=== PATIENT | male | born 1965 | race Caucasian/White ===

== ENCOUNTER 2017-01-11 18:29 | Emergency (ER) | payer MEDICAID ==
--- NOTE | 2017-01-11 19:21 | C.PDOC ---
History Of Present Illness Patient presents to the ER after he tripped and fell down the stairs earlier today and hit the back of his head. Patient states he might have had LOC and is complaining of pain to the occipital area and left foot. Patient is currently speaking in complete sentences; denies change in vision, nausea, or vomiting. - HPI Time Seen by Provider: 01/11/17 19:21 Chief Complaint (Nursing): Trauma History Per: Patient History/Exam Limitations: no limitations Onset/Duration Of Symptoms: Hrs Injury Occurred (Timing): Just Before Arrival Location Of Injury: Left: Foot, Posterior: Head Severity: Mild Pain Scale Rating Of: 4 Associated Symptoms: LOC (Questionable) Recent travel outside of the [place]: No - Fall Fall:Prior To Injury: Tripped Past Medical History Reviewed: Historical Data, Nursing Documentation, Vital Signs Vital Signs: Last Vital Signs Temp Pulse 85 01/11/17 19:45 Resp 18 01/11/17 19:45 BP 126/79 01/11/17 19:45 Pulse Ox 98 01/11/17 21:32 - Medical History PMH: Depression, Hepatitis (C), Hypothyroidism Surgical History: No Surg Hx Family History: States: No Known Family Hx - Social History Hx Tobacco Use: No Hx Alcohol Use: No Hx Substance Use: Yes (heroin cocaine) - Immunization History Hx Tetanus Toxoid Vaccination: No Hx Influenza Vaccination: No Hx Pneumococcal Vaccination: No Review Of Systems Eyes: Negative for: Vision Change Gastrointestinal: Negative for: Nausea, Vomiting Musculoskeletal: Positive for: Foot Pain, Other (Occipital area pain) Skin: Positive for: Other (Abrasion) Physical Exam - Physical Exam Appears: Non-toxic, Other (Awake, alert, in moderate distress) Skin: Warm, Dry Head: Normacephalic, Abrasion (Left occipital area) Eye(s): bilateral: Normal Inspection, PERRL, EOMI Oral Mucosa: Moist Neck: No Midline Cervical Tenderness, No Paracervical Tenderness, Supple Chest: Symmetrical, No Tenderness Cardiovascular: Rhythm Regular Respiratory: No Rales, No Rhonchi, No Wheezing Gastrointestinal/Abdominal: Soft, No Tenderness Extremity: Tenderness (Over dorsum of left foot), Pedal Edema (Trace, left great than right), Capillary Refill (<2 seconds), No Deformity, Other (Surgical scar over right leg) Pulses: Left Dorsalis Pedis: Normal, Right Dorsalis Pedis: Normal Neurological/Psych: Oriented x3 ED Course And Treatment - Laboratory Results Result Diagrams: 01/11/17 19:45 01/11/17 19:45 O2 Sat by Pulse Oximetry: 98 Pulse Ox Interpretation: Normal - Other Rad ankle X-Ray: Interpreted by Me, Viewed By Me Interpretation: no fx or dislocation foot X-Ray: Interpreted by Me, Viewed By Me Interpretation: no fx or dislocation Progress Note: CT cervical spine, CT head, CT orbits/facials, left foot x-ray, left ankle x-ray, and urinalysis ordered. Reevaluation Time: 22:01 Reassessment Condition: Improved Laceration - Laceration Repair scalp Wound Length (In cm): 4 Description Of Wound: Stellate Wound Cleansed With: Betadine Anesthesia: Lidocaine 1%, With Epi Wound Examination: Irrigated With Saline Wound Closure: [place] (#10) Wound Complexity: Simple (Pt tolereated the procedure well.) Disposition Counseled Patient/Family Regarding: Studies Performed, Diagnosis, Need For Followup - Disposition Referrals: [facility] [Outside] [facility] [Outside] Disposition: HOME/ ROUTINE Disposition Time: 19:21 Condition: FAIR Additional Instructions: Please have jonas removed in 7 -10 days Prescriptions: Naproxen [Naprosyn] 1 tab PO BID PRN #25 tab PRN Reason: Pain Instructions: Laceration (DC), Staple Care (ED), Arthralgia (ED) Forms: [facility] (Hebrew) - Clinical Impression Clinical Impression: Fall, Scalp laceration, Foot pain, left - Scribe Statement The provider has reviewed the documentation as recorded by the Scribxiomara Jason All medical record entries made by the Mattibxiomara were at my direction and personally dictated by me. I have reviewed the chart and agree that the record accurately reflects my personal performance of the history, physical exam, medical decision making, and the department course for this patient. I have also personally directed, reviewed, and agree with the discharge instructions and disposition.
[2017-01-11 19:49] VITALS: RESP 18; O2SAT 98
[2017-01-11 19:51] LABS: BASO # 0.1 K/uL (0.0-0.2); BASO % 0.8 % (0.0-2.0); EOS # 0.1 K/uL (0.0-0.7); EOS % 0.8 % (0.0-4.0); HEMATOCRIT 39.7 % (35.0-51.0); LYMPH # 1.5 K/uL (1.0-4.3); LYMPH % 18.1 % (20.0-40.0); MEAN CORPUSCULAR HGB CONC 33.5 g/dL (33.0-37.0); MEAN PLATELET VOLUME 10.5 fL (7.2-11.7); MONO # 1.2 K/uL (0.0-0.8); MONO % 14.2 % (0.0-10.0); RED CELL DISTRIBUTION WIDTH 14.9 % (11.5-14.5); WHITE BLOOD COUNT 8.2 K/uL (4.8-10.8)
[2017-01-11 19:56] LABS: MEAN CELL VOLUME 83.5 fL (80.0-94.0)
[2017-01-11 20:00] LABS: INR 1.4
[2017-01-11 20:04] LABS: ALB/GLOB RATIO 1.1 (1.0-2.1); ALCOHOL SERUM < 10 mg/dl (0-10); ALKALINE PHOSPHATASE 75 U/L (38-126); ALT/SGPT 47 U/L (21-72); AST/SGOT 33 U/L (17-59); BILIRUBIN,TOTAL 0.6 mg/dL (0.2-1.3); BLOOD UREA NITROGEN 16 mg/dL (9-20); CALCIUM 8.3 mg/dl (8.6-10.4); CARBON DIOXIDE 26 mmol/L (22-30); CHLORIDE 103 mmol/L (98-107); GFR AFRICAN-AMERICAN > 60; GLUCOSE,RANDOM 121 mg/dL (75-110); SODIUM 140 mmol/L (132-148); TOTAL PROTEIN 7.1 g/dL (6.3-8.3)
--- NOTE | 2017-01-11 20:25 | CT ---
PROCEDURE: CT HEAD WITHOUT CONTRAST. HISTORY: fall COMPARISON: None available. TECHNIQUE: Axial computed tomography images were obtained through the head/brain without intravenous contrast. Radiation dose: Total exam DLP = 992.73 mGy-cm. This CT exam was performed using one or more of the following dose reduction techniques: Automated exposure control, adjustment of the mA and/or kV according to patient size, and/or use of iterative reconstruction technique. FINDINGS: HEMORRHAGE: No intracranial hemorrhage. BRAIN: No mass effect or edema. No atrophy or chronic microvascular ischemic changes. VENTRICLES: Unremarkable. No hydrocephalus. CALVARIUM: No calvarial fracture. Left parietal scalp laceration. PARANASAL SINUSES: Unremarkable as visualized. No significant inflammatory changes. MASTOID AIR CELLS: Unremarkable as visualized. No inflammatory changes. OTHER FINDINGS: There is a depressed fracture of the left lamina papyracea of indeterminate age. In the absence of adjacent orbital hemorrhage or blood within the paranasal sinuses,, this is most likely old. IMPRESSION: No intracranial hemorrhage. Probable old depressed left lamina papyracea fracture. Left parietal scalp laceration.
--- NOTE | 2017-01-11 20:28 | CT ---
PROCEDURE: CT Cervical Spine without contrast HISTORY: Status post fall COMPARISON: None available. TECHNIQUE: Axial computed tomography images were obtained of the cervical spine without the use of intravenous contrast. Coronal and sagittal reformatted images were created and reviewed. Radiation dose: Total exam DLP = 595.22 mGy-cm. This CT exam was performed using one or more of the following dose reduction techniques: Automated exposure control, adjustment of the mA and/or kV according to patient size, and/or use of iterative reconstruction technique. FINDINGS: VERTEBRAE: No fracture. Normal alignment. No destructive bony lesion. DISCS/SPINAL CANAL/NEURAL FORAMINA: No significant central canal or neural foraminal stenosis. Discs heights are grossly preserved. PARASPINAL SOFT TISSUES: Unremarkable. OTHER FINDINGS: None. IMPRESSION: Unremarkable CT of the cervical spine.
--- NOTE | 2017-01-11 20:32 | CT ---
PROCEDURE: CT MAXILLOFACIAL BONES WITHOUT CONTRAST HISTORY: fall COMPARISON: None TECHNIQUE: Contiguous axial CT images of the maxillofacial bones were obtained. Coronal and sagittal reformats were generated. Radiation dose: Total exam DLP = 936.81 mGy-cm. This CT exam was performed using one or more of the following dose reduction techniques: Automated exposure control, adjustment of the mA and/or kV according to patient size, and/or use of iterative reconstruction technique. FINDINGS: NASAL BONES: Unremarkable. ORBITS: Old depressed left lamina papyracea fracture. Orbital floors are intact. No intraorbital hemorrhage. Globes are rounded and symmetric. PARANASAL SINUSES/ MASTOIDS: Minimal chronic bilateral maxillary sinusitis. MAXILLA: Unremarkable. MANDIBLE/ TEMPOROMANDIBULAR JOINTS: Unremarkable. SKULL BASE: Unremarkable. TEMPORAL BONES: Middle ears and mastoid grossly unremarkable. OTHER FINDINGS: None. IMPRESSION: No evidence of facial fracture. Old depressed left lamina papyracea fracture. Minimal chronic bilateral maxillary sinusitis.
[2017-01-11] MEDS ORDERED: Lidocaine 1%/Epinephrine 1:100000 30 ml vial IJ ONE (20:38)
[2017-01-11] MEDS ORDERED: Lidocaine/Epi 1% 1:100000 20 ML IJ ONE (20:45)
[2017-01-11 22:26] VITALS: BP 132/84; PULSE 89; TEMP 98.4
--- NOTE | 2017-01-12 08:14 | RAD ---
PROCEDURE: Left Ankle Radiographs. HISTORY: fall COMPARISON: None FINDINGS: BONES: . No fracture. Minimal medial tibial -medial talar spurring ; minimal spurring medial cuneiform - 1st metatarsal base Lateral proximal phalangeal subarticular cyst -interphalangeal joint level Large os trigone EM JOINTS: Mild osteoarthritis. Ankle mortise maintained. Talar dome intact SOFT TISSUES: Normal. OTHER FINDINGS: None. IMPRESSION: No fracture Arthrosis Large os trigonum- can be associated with posterior ankle impingement syndrome
--- NOTE | 2017-01-12 08:16 | RAD ---
HISTORY: fall PROCEDURE: LEFT FOOT - THREE VIEWS COMPARISON: None FINDINGS: BONES: . No fracture. Minimal medial tibial -medial talar spurring ; minimal spurring medial cuneiform - 1st metatarsal base Lateral proximal phalangeal subarticular cyst -interphalangeal joint level Large os trigone EM Posterior calcaneal spurring - Achilles tendon insertional enthesophyte JOINTS: Mild osteoarthritis. Ankle mortise maintained. Talar dome intact SOFT TISSUES: Normal. OTHER FINDINGS: None. IMPRESSION: No fracture Arthrosis Large os trigonum- can be associated with posterior ankle impingement syndrome Posterior calcaneal spurring - Achilles tendon insertional enthesophyte
== END 2017-01-11 22:26 | disposition home or self-care (01) ==
LOC: C.ER 18:29
DX: S01.01XA Laceration without foreign body of scalp, initial encounter (principal); W10.9XXA Fall (on) (from) unspecified stairs and steps, initial encounter; M79.672 Pain in left foot

== ENCOUNTER 2017-01-27 11:08 | Emergency (ER) | payer MEDICAID ==
[2017-01-27 11:25] VITALS: BP 127/78; PULSE 55; RESP 16; TEMP 97.9; O2SAT 94
--- NOTE | 2017-01-27 11:48 | C.PDOC ---
History Of Present Illness 51 year old male presents to the ED for staple removal. Patient was evaluated in the ED around 16 days ago and had jonas placed to the back of his head. Patient states pain has been improving and denies swelling or discharge around the area. Time Seen by Provider: 01/27/17 11:34 Chief Complaint (Nursing): Suture/Staple Removal History Per: Patient History/Exam Limitations: no limitations Onset/Duration Of Symptoms: Days Ago (16) Current Symptoms Are (Timing): Better Quality Of Symptoms: denies: Painful, Itching, Swollen, Draining Additional History Per: Patient Past Medical History Reviewed: Historical Data, Nursing Documentation, Vital Signs Vital Signs: Last Vital Signs Temp 97.9 F 01/27/17 11:22 Pulse 55 L 01/27/17 11:22 Resp 16 01/27/17 11:22 BP 127/78 01/27/17 11:22 Pulse Ox 94 L 01/27/17 17:56 - Medical History PMH: Depression, Hepatitis (C), Hypothyroidism Denies: Diabetes, HIV, HTN, Seizures, Sexually Transmitted Disease Surgical History: No Surg Hx Family History: States: Unknown Family Hx - Social History Hx Tobacco Use: No Hx Alcohol Use: No Hx Substance Use: Yes - Immunization History Hx Tetanus Toxoid Vaccination: Yes Hx Influenza Vaccination: No Hx Pneumococcal Vaccination: No Review Of Systems Skin: Positive for: Other (staple removal. no pain, swelling, discharge ) Physical Exam - Physical Exam Appears: Non-toxic, No Acute Distress Skin: Normal Color, Warm, Dry Head: Other (13 jonas to left occipital scalp. no erythema, discharge or signs of infection ) ED Course And Treatment O2 Sat by Pulse Oximetry: 94 (on RA) Pulse Ox Interpretation: Normal Progress Note: 13 jonas removed from left occipital scalp. Patient tolerated well with no complications. Patient is resting comfortably and is stable for discharge and is advised to follow up with PMD within 1-2 days for further evaluation. Disposition - Disposition Disposition: HOME/ ROUTINE Disposition Time: 11:47 Condition: STABLE Additional Instructions: Follow up with your PMD within 1-2 days. Return to ED if feel worse. Instructions: Staple Care (ED) Forms: [facility] (Spanish) - Clinical Impression Clinical Impression: Removal of jonas - PA / COMPLIANCE NURSE / Resident Statement MD/DO has reviewed & agrees with the documentation as recorded. - Scribe Statement The provider has reviewed the documentation as recorded by the Scribe (Vonnie Guallpa) All medical record entries made by the Scribe were at my direction and personally dictated by me. I have reviewed the chart and agree that the record accurately reflects my personal performance of the history, physical exam, medical decision making, and the department course for this patient. I have also personally directed, reviewed, and agree with the discharge instructions and disposition.
== END 2017-01-27 12:16 | disposition home or self-care (01) ==
LOC: C.ER 11:08
DX: Z48.02 Encounter for removal of sutures (principal); E03.9 Hypothyroidism, unspecified

== ENCOUNTER 2017-09-20 17:18 | Emergency (ER) | payer OTHER, MEDICAID ==
[2017-09-20 17:46] VITALS: BP 110/63; PULSE 87; RESP 16; TEMP 98; O2SAT 100
[2017-09-20] MEDS ORDERED: Lidocaine 1% w Epi 1:100,000 Inj INJ STA (18:06)
[2017-09-20] MEDS ORDERED: Bacitracin 500 Units/gm Oint Foilpak UD TOP STA (18:06)
[2017-09-20] MEDS ORDERED: ceFAZolin 1 gm in NS 1 GM/100 ML BAG IVPB ONE (18:21)
[2017-09-20] MEDS ORDERED: Bacitracin 500 Units/gm Oint Foilpak UD ONE (18:41)
--- NOTE | 2017-09-20 19:13 | C.PDOC ---
History Of Present Illness 52 year old male patient presents to the ER with c/o injured right forearm. Patient states he received a laceration on his right forearm at 3 am this morning. Patient denies numbness, decreased ROM and weakness. Patient is UTD with tetanus shot. Chief Complaint (Nursing): Abnormal Skin Integrity History Per: Patient History/Exam Limitations: no limitations Onset/Duration Of Symptoms: Hrs Current Symptoms Are (Timing): Still Present Location Of Injury: Right: Forearm (laceration) Past Medical History Reviewed: Historical Data, Nursing Documentation, Vital Signs Vital Signs: Last Vital Signs Temp 98 F 09/20/17 17:44 Pulse 87 09/20/17 17:44 Resp 16 09/20/17 17:44 BP 110/63 09/20/17 17:44 Pulse Ox 100 09/20/17 21:47 - Medical History PMH: Depression, Hepatitis (C), Hypothyroidism Family History: States: Unknown Family Hx - Social History Hx Tobacco Use: No Hx Alcohol Use: No Hx Substance Use: Yes - Immunization History Hx Tetanus Toxoid Vaccination: Yes (2013) Hx Influenza Vaccination: No Hx Pneumococcal Vaccination: No Review Of Systems Except As Marked, All Systems Reviewed And Found Negative. Musculoskeletal: Positive for: Arm Pain (laceration rigth forearm) Neurological: Negative for: Weakness, Numbness, Other (decreased ROM) Physical Exam - Physical Exam Appears: Well, Non-toxic, No Acute Distress Skin: Normal Color, Warm, Dry Head: Atraumatic, Normacephalic Cardiovascular: Rhythm Regular Respiratory: Normal Breath Sounds Extremity: Other (6 cm laceration trhough subcutaneous tissue; fascia and muscles intact; FROM on wrist, hand, fingers. No sensory/motor deficit. ) Pulses: Left Radial: Normal, Right Radial: Normal Neurological/Psych: Oriented x3, Normal Speech, Normal Motor, Normal Sensation, Normal Reflexes, No Other (sensory deficit) Gait: Steady ED Course And Treatment O2 Sat by Pulse Oximetry: 100 (RA) Pulse Ox Interpretation: Normal Progress Note: Impression: Laceration on rigth forearm. Plans: -- Ancef. -- Bacitracin. -- lidocaine/epi. Reassess: Patient is resting comfortably. Tolerating PO. Patient is instructed on wound care. Patient is advised to f/u with PCP or ER in 1-2 days wor wound check. Laceration - Laceration Repair right forearm Wound Length (In cm): 6 Description Of Wound: Linear Wound Cleansed With: Sterile Saline Anesthesia: With Epi Wound Examination: Irrigated With Saline, No FB With Wound Exploration, No Tendon Injury With Wound Exploration Wound Closure: [place] (18), Suture (Vicryl plus 3-O; 9 sutures) Suture Technique And Material Used: Interrupted, Vicryl (3-0, 9 stiches) Wound Complexity: Intermediate Disposition - Disposition Referrals: Serafin Noe MD [Staff Provider] - Disposition: HOME/ ROUTINE Disposition Time: 19:12 Condition: STABLE Additional Instructions: Follow up with General psych sales specialist within 1-2 days. Return to ED if feel worse. Return to ED in 2 days for wound check and dressing change. Prescriptions: Bacitracin OINT 1 applic TP TID #45 g Cephalexin [Keflex] 500 mg PO Q6 #28 cap Instructions: Laceration Repair With Dilma (DC), Laceration Repair With Stitches (DC) Forms: [employer] (Sami) - Clinical Impression Clinical Impression: Forearm laceration - PA / HOE WORKER / Resident Statement MD/ has reviewed & agrees with the documentation as recorded. - Scribe Statement The provider has reviewed the documentation as recorded by the Femi Wray Do All medical record entries made by the Scribe were at my direction and personally dictated by me. I have reviewed the chart and agree that the record accurately reflects my personal performance of the history, physical exam, medical decision making, and the department course for this patient. I have also personally directed, reviewed, and agree with the discharge instructions and disposition.
== END 2017-09-20 19:23 | disposition home or self-care (01) ==
LOC: C.ER 17:18
DX: S51.811A Laceration without foreign body of right forearm, initial encounter (principal); X58.XXXA Exposure to other specified factors, initial encounter; E03.9 Hypothyroidism, unspecified; F32.9 Major depressive disorder, single episode, unspecified
CPT/HCPCS: 12032; 96365; 99283; J0690